=== PATIENT | male | born 1980 | race Caucasian/White ===

== ENCOUNTER → 2022-01-09 14:11 | Outpatient (BNVA) | payer BC, SELFPAY | PROVIDERS: Visit Provider Orthopaedic Surgery | DX: M47.22 Other spondylosis with radiculopathy, cervical region (principal) | CPT/HCPCS: 72050 ==

== ENCOUNTER 2022-02-20 11:02 | Outpatient (CLI) | payer BC, SELFPAY ==
--- NOTE | 2022-02-20 11:15 | MR_ITS ---
WS: [id number] MRI CERVICAL SPINE NONCONTRAST HISTORY: pain COMPARISON: Radiograph 01/09/2022 Technique: Multiplanar, multisequence noncontrast imaging of the cervical spine. Normal cervical alignment with no compression fracture or significant disc space narrowing. Signal within the cervical cord is normal. Visualized posterior fossa is unremarkable. Craniocervical junction, C1 and C2 relationship, odontoid process and soft tissues are normal. C2-C3: Normal. C3-C4: Normal. C4-C5: Mild disc bulging and very small RIGHT foraminal osteophytes. No significant stenosis. C5-C6: Mild osteophytic ridging with a small RIGHT foraminal osteophyte causing mild narrowing of the RIGHT foramen. Mild central stenosis. C6-C7: Mild disc bulging with a very tiny central disc protrusion and osteophytic ridging. Mild centr al and foraminal stenosis. C7-T1: Normal. Paraspinal soft tissue are normal. MR/MR cervical spin wo con* [id number] IMPRESSION: 1. No high-grade central or foraminal stenosis. 2. Mild central and foraminal stenosis at C6-7 due to shallow central disc pro trusion and osteophytic ridging. 3. Mild RIGHT foraminal stenosis at C5-6 with mild central stenosis.
== END 2022-02-20 11:03 | disposition home or self-care (01) ==
LOC: RAD 11:03
PROVIDERS: Visit Provider Orthopaedic Surgery
DX: M48.02 Spinal stenosis, cervical region (principal)
CPT/HCPCS: 72141

== ENCOUNTER → 2022-03-22 13:58 | Outpatient (BNVA) | payer BC, SELFPAY | PROVIDERS: Visit Provider Orthopaedic Surgery | DX: M48.062 Spinal stenosis, lumbar region with neurogenic claudication (principal); M51.36 Other intervertebral disc degeneration, lumbar region; M51.37 Other intervertebral disc degeneration, lumbosacral region | CPT/HCPCS: 72110 ==

== ENCOUNTER 2022-04-19 15:21 | Outpatient (CLI) | payer BC, SELFPAY ==
--- NOTE | 2022-04-19 15:15 | MR_ITS ---
WS: [id number] MRI LUMBAR SPINE NONCONTRAST HISTORY: Chronic back pain down both legs. No injury. COMPARISON: No similar studies. TECHNIQUE: Sagittal and axial multisequence imaging is submitted. Straightening of the normal lumbar lordosis. No marrow edema or fractures. Disc spaces and vertebral body heights are well-preserved. Conus terminates normally at L1-2 disc level. L1-L2: Mild annular disc bulging with ligamentum flavum and facet arthritis. Mild to moderate bilater al foraminal narrowing. L2-L3: Narrowing of the thecal sac with mild ligamentum flavum and facet arthritis. Mild to moderate bilateral foraminal stenosis slightly greater on the RIGHT. L3-L4: Continued narrowing of the thecal sac with mild ligamentum flavum and facet arthritis. Moderat e bilateral foraminal stenosis. L4-L5: Very minimal osteophytic ridging with mild ligamentum flavum and facet arthritis. Mild encroac hment narrowing of the thecal sac. Moderate bilateral foraminal stenosis, RIGHT greater than LEFT. L5-S1: RIGHT paracentral disc protrusion with annular fissure contacting the RIGHT lateral thecal sac and the RIGHT S1 nerve root. Mild bilateral foraminal stenosis. Tarlov cyst posterior to the sacrum. MR/MR lumbar spine wo con* [id number] IMPRESSION: 1. RIGHT paracentral disc protrusion at L5-S1 causing mild effacement of the R IGHT lateral thecal sac and contacting the RIGHT S1 nerve root. 2. Multilevel foraminal stenosis throughout the lumbar spine. This is most lik shayna due to short pedicles. There is also a small central canal although no sign ificant central stenosis. 3. Moderate bilateral foraminal stenosis, RIGHT greater than LEFT at L4-5. 4. Multiple moderate foraminal stenosis at L1-2 and L2-3 and moderate at L3-4.
== END 2022-04-19 15:22 | disposition home or self-care (01) ==
LOC: RAD 15:21
PROVIDERS: Visit Provider Orthopaedic Surgery
DX: M79.604 Pain in right leg (principal); M79.605 Pain in left leg; M51.27 Other intervertebral disc displacement, lumbosacral region; M48.061 Spinal stenosis, lumbar region without neurogenic claudication
CPT/HCPCS: 72148